=== PATIENT | male | born 1945 | race Caucasian/White ===

== ENCOUNTER 2016-04-19 09:49 | Emergency (ER) | payer MEDICARE, OTHER ==
--- NOTE | 2016-04-19 10:16 | EDM.PDOC ---
ED HPI GENERAL MEDICAL PROBLEM - General Chief Complaint: General Stated Complaint: HIGH BLOOD PRESSURE Time Seen by Provider: 04/19/16 10:00 Source of Information: Reports: Patient History Limitations: Reports: No limitations - History of Present Illness INITIAL COMMENTS - FREE TEXT/NARRATIVE: This 70 yo male patient reports to the ED due to high blood pressure. The patient reports that he has noticed his blood pressure increasing over the past week. The patient reports his blood pressure was 200/100 according to the blood pressure machine at the pharmacy. The patient has not been in to see his primary care provider for his elevated blood pressure. The patient has a history of an aortic valve replacement, but no history of hypertension. Onset: gradual Duration: Day(s):, Constant, Getting worse Location: Reports: other Quality: Reports: Other Severity: mild Improves with: Reports: None Worsens with: Reports: None Context: Reports: Other Associated Symptoms: Reports: other - Related Data Allergies Allergy/AdvReac Type Severity Reaction Status Date / Time No Known Allergies Allergy Verified 04/19/16 09:54 Home Meds: Home Meds Simvastatin [Simvastatin] 1 tab PO DAILY 02/24/16 [History] Warfarin Sodium [Jantoven] 1 - 2 tab PO ASDIRECTED 02/24/16 [History] Past Medical History HEENT History: Reports: Hard of hearing, Sinusitis Cardiovascular History: Reports: Afib, Arrhythmia, Bypass, Heart valve replacement, High cholesterol, PTCA, Other (see below) Other Cardiovascular History: aortic stenosis, aortic regurbitation, ischemic heart disease Respiratory History: Reports: None Gastrointestinal History: Reports: Chronic diarrhea Genitourinary History: Reports: None Musculoskeletal History: Reports: Back pain, chronic Neurological History: Reports: Migraines Psychiatric History: Reports: Panic attack Endocrine/Metabolic History: Reports: None Hematologic History: Reports: None Immunologic History: Reports: None Oncologic (Cancer) History: Reports: Other (see below) Other Oncologic History: skin Dermatologic History: Reports: None - Infectious Disease History Infectious Disease History: Reports: Chicken pox, Measles, Mumps - Past Surgical History Head Surgeries/Procedures: Reports: None HEENT Surgical History: Reports: None Cardiovascular Surgical History: Reports: Coronary artery bypass, Other (see below) Other Cardiovascular Surgeries/Procedures: angioplasty, aortic valve replacement GI Surgical History: Reports: Colonoscopy Musculoskeletal Surgical History: Reports: Other (see below) Other Musculoskeletal Surgeries/Procedures:: spinal fusion Social & Family History - Family History Family Medical History: Noncontributory - Tobacco Use Smoking Status *Q: Never Smoker - Caffeine Use Caffeine Use: Reports: None - Recreational Drug Use Recreational Drug Use: No ED ROS GENERAL - Review of Systems Review Of Systems: See Below Constitutional: Reports: no symptoms HEENT: Reports: No symptoms Respiratory: Reports: no symptoms Cardiovascular: Reports: No symptoms Endocrine: Reports: no symptoms GI/Abdominal: Reports: No symptoms : Reports: no symptoms Musculoskeletal: Reports: no symptoms Skin: Reports: no symptoms Neurological: Reports: no symptoms Psychiatric: Reports: No symptoms Hematologic/Lymphatic: Reports: no symptoms Immunologic: Reports: no symptoms ED EXAM, GENERAL - Physical Exam Exam: See Below Exam Limited By: No limitations General Appearance: alert, WD/WN, no apparent distress Eye Exam: bilateral eye: EOMI, normal inspection, PERRL Ears: normal external exam, normal canal, hearing grossly normal, normal TMs Nose: normal inspection, normal mucosa, no blood Throat/Mouth: Normal inspection, Normal lips, Normal teeth, Normal gums, Normal oropharynx, Normal voice, No airway compromise Head: atraumatic, normocephalic Neck: normal inspection, supple, non-tender, full range of motion Respiratory/Chest: no respiratory distress, lungs clear, normal breath sounds, no accessory muscle use, chest non-tender Cardiovascular: normal peripheral pulses, regular rate, rhythm, no edema, no gallop, no JVD, no murmur, no rub GI/Abdominal: normal bowel sounds, soft, non tender, no organomegaly, no distention, no abnormal bruit, no mass (Male) Exam: Deferred Rectal (Males) Exam: Deferred Back Exam: normal inspection, full range of motion, NT Extremities: normal inspection, normal range of motion, non-tender, normal capillary refill, no pedal edema Neurological: alert, oriented, CN II-XII intact, normal cognition, normal gait, normal reflexes, no motor/sensory deficits Psychiatric: normal affect, normal mood Skin Exam: Warm, Dry, Intact, Normal color, No rash Lymphatic: no adenopathy Course - Vital Signs Last Recorded V/S: Last Vital Signs Temp 36.8 C 04/19/16 09:56 Pulse 78 04/19/16 09:56 Resp 20 04/19/16 09:56 BP 173/100 H 04/19/16 09:56 Pulse Ox 100 04/19/16 09:56 - Orders/Labs/Meds Orders: Active Orders 24 hr Category Date Time Status EKG Documentation Completion [RC] URGENT Care 04/19/16 10:07 Ordered Labs: Laboratory Tests 04/19/16 04/19/16 04/19/16 Range/Units 10:20 10:20 10:20 WBC 6.7 (5.0-10.0) 10^3/uL RBC 4.49 L (4.6-6.2) 10^6/uL Hgb 14.8 (14.0-18.0) g/dL Hct 43.5 (40.0-54.0) % MCV 96.9 (80-100) fL MCH 33.0 (27.0-34.0) pg MCHC 34.0 (33.0-35.0) g/dL Plt Count 159 (150-450) 10^3/uL Neut % (Auto) 68.9 (42.2-75.2) % Lymph % (Auto) 22.1 (20.5-50.1) % [place] % (Auto) 7.0 (2-8) % Eos % (Auto) 1.6 (1.0-3.0) % Baso % (Auto) 0.4 (0.0-1.0) % PT 18.0 H (9.0-12.0) SEC INR 1.7 H (0.9-1.2) Sodium 139 (135-145) mmol/L Potassium 4.0 (3.6-5.0) mmol/L Chloride 104 (101-111) mmol/L Carbon Dioxide 28.0 (21.0-31.0) mmol/L Anion Gap 11.0 BUN 19 H (7-18) mg/dL Creatinine 0.6 (0.6-1.3) mg/dL Est Cr Clr Drug Dosing 105.58 mL/min Estimated GFR (MDRD) > 60 BUN/Creatinine Ratio 31.66 Glucose 101 (74-105) mg/dL Calcium 8.8 (8.4-10.2) mg/dl Total Bilirubin 0.6 (0.2-1.0) mg/dL AST 32 (10-42) IU/L ALT 28 (10-60) IU/L Alkaline Phosphatase 56 (42-121) IU/L Troponin I < 0.02 (0.00-0.02) ng/ml Total Protein 6.6 L (6.7-8.2) g/dl Albumin 3.9 (3.2-5.5) g/dl Globulin 2.7 Albumin/Globulin Ratio 1.44 Departure - Departure Time of Disposition: 11:03 Disposition: Home, Self-Care 01 Condition: fair Clinical Impression: Intermittent hypertension, Anxiety Forms: ED Department Discharge Care Plan Goals: The patient was advised of the examination, EKG and lab results during the visit. The patient was encouraged to continue to monitor his blood pressure. If the patient has any additional symptoms or concerns, the patient should follow- up with his primary care facility or return to the emergency department. - My Orders Last 24 Hours: My Active Orders 04/19/16 10:07 EKG Documentation Completion [RC] URGENT - Assessment/Plan Last 24 Hours: My Active Orders 04/19/16 10:07 EKG Documentation Completion [RC] URGENT
[2016-04-19 10:50] LABS: CHLORIDE,CL 104 mmol/L (101-111); SODIUM,NA 139 mmol/L (135-145)
[2016-04-19 11:05] VITALS: BP 149/76
--- NOTE | 2016-04-20 21:37 | EKG ---
04/19/2016 - SERGIO BHAT - TIME: 1010 hours. EKG shows normal sinus rhythm at 68 beats per minute. There are present PVCs. There is left anterior fascicular block. Probable left ventricular hypertrophy. [facility] /[id number]
== END 2016-04-19 11:16 | disposition home or self-care (01) ==
LOC: DL.ED 09:49
DX: I10 Essential (primary) hypertension (principal); F41.9 Anxiety disorder, unspecified; I48.91 Unspecified atrial fibrillation; I49.9 Cardiac arrhythmia, unspecified; E78.00 Pure hypercholesterolemia, unspecified; Z79.01 Long term (current) use of anticoagulants; Z95.1 Presence of aortocoronary bypass graft
CPT/HCPCS: 36415; 80053; 84484; 85025; 85610; 93005; 93010; 99282; 99283

== ENCOUNTER 2016-04-23 13:19 | Emergency (ER) | payer MEDICARE, OTHER ==
--- NOTE | 2016-04-23 13:33 | EDM.PDOC ---
ED HISTORY OF PRESENT ILLNESS - General Chief Complaint: Cardiovascular Problem Stated Complaint: [id number] HIGH BLOOD PRESSURE Time Seen by Provider: 04/23/16 13:32 Source of Information: Reports: Patient, Old records, RN, RN notes reviewed History Limitations: Reports: No limitations - History of Present Illness INITIAL COMMENTS - FREE TEXT/NARRATIVE: Presents to ER with complaint of high blood pressure. Patient states he was started on a new blood pressure med yesterday and today his BP was still 170/100 , so he doesn't think the new medicine is working. Denies chest pain, shortness of breath, palpitations, edema or cough. Admits to mild sinus congestion and sinus headache. Severity: moderate Quality: Reports: Same as previous episode Improves with: Reports: None Worsens with: Reports: None Associated Symptoms (General): Reports: no other symptoms - Related Data Allergies/ADRs: Allergies Allergy/AdvReac Type Severity Reaction Status Date / Time No Known Allergies Allergy Verified 04/19/16 09:54 Home Meds: Home Meds Simvastatin [Simvastatin] 1 tab PO DAILY 02/24/16 [History] Warfarin Sodium [Jantoven] 1 - 2 tab PO ASDIRECTED 02/24/16 [History] Hydrochlorothiazide 12.5 mg PO DAILY 04/23/16 [History] Past Medical History HEENT History: Reports: Hard of hearing, Sinusitis, Other (see below) (migraine) Cardiovascular History: Reports: Afib, Arrhythmia, Bypass, Heart valve replacement, High cholesterol, Hypertension, PTCA, Other (see below) (aortic stenosis) Other Cardiovascular History: aortic stenosis, aortic regurbitation, ischemic heart disease Respiratory History: Reports: None Gastrointestinal History: Reports: Chronic diarrhea, Hemorrhoids, Other (see below) (C-diff colitis.) Genitourinary History: Reports: None Musculoskeletal History: Reports: Back pain, chronic, Osteoarthritis Neurological History: Reports: Migraines Psychiatric History: Reports: Anxiety, Panic attack Endocrine/Metabolic History: Reports: None Hematologic History: Reports: None Immunologic History: Reports: None Oncologic (Cancer) History: Reports: Other (see below) Other Oncologic History: skin Dermatologic History: Reports: Other (see below) (skin cancer.) - Infectious Disease History Infectious Disease History: Reports: Chicken pox, Measles, Mumps - Past Surgical History Head Surgeries/Procedures: Reports: None HEENT Surgical History: Reports: None Cardiovascular Surgical History: Reports: Coronary artery bypass, Other (see below) (heart valve (porcine tissue valve)) Other Cardiovascular Surgeries/Procedures: angioplasty, aortic valve replacement GI Surgical History: Reports: Appendectomy, Colonoscopy Male Surgical History: Reports: Other (see below) (hemorrhoidectomy) Musculoskeletal Surgical History: Reports: Other (see below) (hand cyst/mass removal. Pablo surgery. Shoulder surgery.) Other Musculoskeletal Surgeries/Procedures:: spinal fusion Social & Family History - Family History Family Medical History: Noncontributory - Tobacco Use Smoking Status *Q: Never Smoker Second Hand Smoke Exposure: No - Caffeine Use Caffeine Use: Reports: None - Alcohol Use Days Per Week of Alcohol Use: 7 Number of Drinks Per Day: 1 Total Drinks Per Week: 7 - Recreational Drug Use Recreational Drug Use: No ED ROS GENERAL - Review of Systems Review Of Systems: ROS reveals no pertinent complaints other than HPI. ED EXAM, GENERAL - Physical Exam Exam: See Below Exam Limited By: No limitations General Appearance: alert, WD/WN, no apparent distress Head: atraumatic, normocephalic Neck: normal inspection, supple, non-tender, full range of motion Respiratory/Chest: no respiratory distress, lungs clear, normal breath sounds, no accessory muscle use, chest non-tender Cardiovascular: regular rate, rhythm (2/6 systolic ejectoin murmur.) GI/Abdominal: normal bowel sounds, soft, non tender, no organomegaly, no distention, no abnormal bruit, no mass Rectal (Males) Exam: Normal exam, Normal rectal tone, Prostate normal Back Exam: normal inspection, full range of motion, NT Extremities: normal inspection, normal range of motion, non-tender, normal capillary refill, no pedal edema Neurological: alert, oriented, CN II-XII intact, normal cognition, normal gait, normal reflexes, no motor/sensory deficits Psychiatric: anxious, other (depressed. Not suicidal. ) Skin Exam: Warm, Dry, Intact, Normal color, No rash Lymphatic: no adenopathy Course - Vital Signs Last Recorded V/S: Last Vital Signs Temp 36.6 C 04/23/16 13:37 Pulse 73 04/23/16 13:37 Resp 16 04/23/16 13:37 BP 172/91 H 04/23/16 13:37 Pulse Ox 96 04/23/16 13:37 Departure - Departure Time of Disposition: 13:54 Disposition: Home, Self-Care 01 Condition: good Clinical Impression: Essential hypertension Anxiety disorder Qualifiers: Anxiety disorder type: unspecified anxiety disorder Qualified Code(s): F41.9 - Anxiety disorder, unspecified Depression Qualifiers: Depression Type: unspecified Qualified Code(s): F32.9 - Major depressive disorder, single episode, unspecified Instructions: Hypertension, Panic Attacks, [id number] Forms: ED Department Discharge Additional Instructions: Klonopin 1mg. Continue current medications.
== END 2016-04-23 14:15 | disposition home or self-care (01) ==
LOC: DL.ED 13:19
CPT/HCPCS: 99282; 99283

== ENCOUNTER 2016-08-21 07:21 | Emergency (ER) | payer MEDICARE, OTHER ==
--- NOTE | 2016-08-21 07:39 | EDM.PDOC ---
ED HPI GENERAL MEDICAL PROBLEM - General Chief Complaint: Lower Extremity Injury/Pain Stated Complaint: LEG PAIN Time Seen by Provider: 08/21/16 07:37 Source of Information: Reports: Patient, Old Records, RN, RN Notes Reviewed History Limitations: Reports: No Limitations - History of Present Illness INITIAL COMMENTS - FREE TEXT/NARRATIVE: C/O Rt knee pain worsening over the past few weeks. About 3 weeks ago the knee became swollen and pt believes it had "water on it". He took some over the counter pain/arthritis medicines and it got better until a couple of days ago. Now it is not so much swollen, but is very painful to flex the knee. He has some relief with an ice pack to the posterior knee with the knee left in extension. Denies injury, redness, increased warmth, fever, chills, locking of the knee or giving way. Onset: Gradual Duration: Getting Worse Location: Reports: Lower Extremity, Right Quality: Reports: Ache Severity: Severe Associated Symptoms: Reports: No Other Symptoms Treatments [employer]: Reports: Acetaminophen, NSAIDS Right Knee Pain Score (Numeric/FACES): 8 - Related Data Allergies Allergy/AdvReac Type Severity Reaction Status Date / Time No Known Allergies Allergy Verified 04/19/16 09:54 Home Meds: Home Meds Warfarin Sodium [Jantoven] 1 tab PO ASDIRECTED 02/24/16 [History] Simvastatin [Zocor] 1 tab PO DAILY 08/21/16 [History] Warfarin Sodium [Jantoven] 1.25 mg PO ASDIRECTED 08/21/16 [History] Past Medical History HEENT History: Reports: Hard of Hearing, Sinusitis, Other (See Below) Cardiovascular History: Reports: Afib, Arrhythmia, Bypass, Heart Valve Replacement, High Cholesterol, Hypertension, PTCA, Other (See Below) Other Cardiovascular History: aortic stenosis, aortic regurbitation, ischemic heart disease Respiratory History: Reports: None Gastrointestinal History: Reports: Chronic Diarrhea, Hemorrhoids, Other (See Below) Genitourinary History: Reports: None Musculoskeletal History: Reports: Back Pain, Chronic, Osteoarthritis, Other ( See Below) (Lumbar DDD, lumbar radiculopathy to left leg) Neurological History: Reports: Migraines Psychiatric History: Reports: Anxiety, Panic Attack Endocrine/Metabolic History: Reports: None Hematologic History: Reports: None Immunologic History: Reports: None Oncologic (Cancer) History: Reports: Other (See Below) Other Oncologic History: skin Dermatologic History: Reports: Other (See Below) - Infectious Disease History Infectious Disease History: Reports: Chicken Pox, Measles, Mumps - Past Surgical History Cardiovascular Surgical History: Reports: Coronary Artery Bypass, Other (See Below) Male Surgical History: Reports: Other (See Below) Musculoskeletal Surgical History: Reports: Other (See Below) Social & Family History - Family History Family Medical History: Noncontributory - Tobacco Use Smoking Status *Q: Never Smoker Second Hand Smoke Exposure: No - Caffeine Use Caffeine Use: Reports: None - Alcohol Use Days Per Week of Alcohol Use: 7 Number of Drinks Per Day: 1 Total Drinks Per Week: 7 - Recreational Drug Use Recreational Drug Use: No - Living Situation & Occupation Occupation: Retired Review of Systems - Review of Systems Review Of Systems: ROS reveals no pertinent complaints other than HPI. ED EXAM, GENERAL - Physical Exam Exam: See Below Exam Limited By: No Limitations General Appearance: Alert, WD/WN, No Apparent Distress Head: Atraumatic, Normocephalic Neck: Normal Inspection Respiratory/Chest: No Respiratory Distress Cardiovascular: Normal Peripheral Pulses Back Exam: Normal Inspection, Full Range of Motion. No: CVA Tenderness (L), CVA Tenderness (R) Extremities: No Pedal Edema, Normal Capillary Refill, Limited Range of Motion ( pain with flexion of Rt knee, palpable arthritic crepitus with ROM of Rt knee ) . No: Joint Swelling, Brendan's Sign, Increased Warmth, Redness Neurological: Alert, Oriented, No Motor/Sensory Deficits Psychiatric: Anxious Skin Exam: Warm, Dry, Intact, Normal Color, No Rash Course - Vital Signs Last Recorded V/S: Last Vital Signs Temp 37.4 C 08/21/16 07:38 Pulse 68 08/21/16 07:38 Resp 20 08/21/16 07:38 BP 175/89 H 08/21/16 07:38 Pulse Ox 98 08/21/16 07:38 - Orders/Labs/Meds Orders: Active Orders 24 hr Category Date Time Status Immobilizer [RC] ASDIRECTED Care 08/21/16 08:22 Ordered Ketorolac [Toradol] Med 08/21/16 08:23 Once 30 mg IM ONETIME ONE - Radiology Interpretation Free Text/Narrative:: Xray Rt knee: no fractures, chronic arthritic changes, see Rad. report. Departure - Departure Time of Disposition: 08:29 Disposition: Home, Self-Care 01 Condition: Good Clinical Impression: Osteoarthritis of right knee Qualifiers: Osteoarthritis type: unspecified Qualified Code(s): M17.11 - Unilateral primary osteoarthritis, right knee Right knee pain Qualifiers: Chronicity: acute Qualified Code(s): M25.561 - Pain in right knee - Discharge Information Instructions: Knee Pain, [id number], Knee Immobilizer, [id number], Osteoarthritis Forms: ED Department Discharge Additional Instructions: Ice pack to right knee as needed for pain. Use immobilizer to right knee as needed. Rx: Guy 5mg/325mg *Do not drive or drink alcohol while under the influence of this medication. Follow up in clinic with your orthopedic surgeon at the first available appointment for recheck. - My Orders Last 24 Hours: My Active Orders 08/21/16 08:22 Immobilizer [RC] ASDIRECTED 08/21/16 08:23 Ketorolac [Toradol] 30 mg IM ONETIME ONE - Assessment/Plan Last 24 Hours: My Active Orders 08/21/16 08:22 Immobilizer [RC] ASDIRECTED 08/21/16 08:23 Ketorolac [Toradol] 30 mg IM ONETIME ONE
[2016-08-21 08:01] VITALS: BP 175/89
[2016-08-21] MEDS ORDERED: Ketorolac 30 MG/ML SDV IM ONE (08:23)
== END 2016-08-21 08:58 | disposition home or self-care (01) ==
LOC: DL.ED 07:21
DX: M17.11 Unilateral primary osteoarthritis, right knee (principal); G43.909 Migraine, unspecified, not intractable, without status migrainosus; F41.9 Anxiety disorder, unspecified; Z79.01 Long term (current) use of anticoagulants; Z79.899 Other long term (current) drug therapy; Z95.1 Presence of aortocoronary bypass graft
CPT/HCPCS: 73562; 96372; 99283; J1885

== ENCOUNTER 2016-11-07 16:56 | Emergency (ER) | payer MEDICARE, OTHER ==
[2016-11-07 17:14] VITALS: BP 177/82
--- NOTE | 2016-11-07 17:41 | EDM.PDOC ---
ED HPI GENERAL MEDICAL PROBLEM - General Chief Complaint: Chest Pain Stated Complaint: HEART ISSUES Time Seen by Provider: 11/07/16 17:33 Source of Information: Reports: Patient History Limitations: Reports: No Limitations - History of Present Illness INITIAL COMMENTS - FREE TEXT/NARRATIVE: 71 yo white male c/o not feeling well w/ head stuffiness and PMHx. irregular heart beat. Pt. denies any chest pain or SOB. Pt. also c/o fatigue because he does not sleep well due to worry( financial probs, his kennel, etc. Onset Date: 11/04/16 Onset Time: 12:00 Duration: Day(s): Location: Reports: Head, Generalized Severity: Moderate Improves with: Reports: None Worsens with: Reports: None Associated Symptoms: Reports: No Other Symptoms Treatments [facility]: Reports: EKG, IV/IO, Oxygen - Related Data Allergies Allergy/AdvReac Type Severity Reaction Status Date / Time No Known Allergies Allergy Verified 04/19/16 09:54 Home Meds: Home Meds Warfarin Sodium [Jantoven] 1 tab PO ASDIRECTED 02/24/16 [History] Simvastatin [Zocor] 1 tab PO DAILY 08/21/16 [History] Warfarin Sodium [Jantoven] 1.25 mg PO ASDIRECTED 08/21/16 [History] Past Medical History HEENT History: Reports: Hard of Hearing, Sinusitis, Other (See Below) Cardiovascular History: Reports: Afib, Arrhythmia, Bypass, Heart Valve Replacement, High Cholesterol, Hypertension, PTCA, Other (See Below) Other Cardiovascular History: aortic stenosis, aortic regurbitation, ischemic heart disease Respiratory History: Reports: None Gastrointestinal History: Reports: Chronic Diarrhea, Hemorrhoids, Other (See Below) Genitourinary History: Reports: None Musculoskeletal History: Reports: Back Pain, Chronic, Osteoarthritis, Other ( See Below) (Lumbar DDD, lumbar radiculopathy to left leg) Neurological History: Reports: Migraines Psychiatric History: Reports: Anxiety, Panic Attack Endocrine/Metabolic History: Reports: None Hematologic History: Reports: None Immunologic History: Reports: None Oncologic (Cancer) History: Reports: Other (See Below) Other Oncologic History: skin Dermatologic History: Reports: Other (See Below) - Infectious Disease History Infectious Disease History: Reports: Chicken Pox, Measles, Mumps - Past Surgical History Cardiovascular Surgical History: Reports: Coronary Artery Bypass, Other (See Below) Male Surgical History: Reports: Other (See Below) Musculoskeletal Surgical History: Reports: Other (See Below) Social & Family History - Family History Family Medical History: Noncontributory - Tobacco Use Smoking Status *Q: Never Smoker Second Hand Smoke Exposure: No - Caffeine Use Caffeine Use: Reports: Soda - Alcohol Use Days Per Week of Alcohol Use: 7 Number of Drinks Per Day: 1 Total Drinks Per Week: 7 - Recreational Drug Use Recreational Drug Use: No - Living Situation & Occupation Occupation: Retired ED ROS GENERAL - Review of Systems Review Of Systems: See Below Constitutional: Reports: Malaise HEENT: Reports: Sinus Problem Respiratory: Reports: No Symptoms Cardiovascular: Reports: No Symptoms Endocrine: Reports: No Symptoms GI/Abdominal: Reports: No Symptoms : Reports: No Symptoms Musculoskeletal: Reports: No Symptoms Skin: Reports: No Symptoms Neurological: Reports: No Symptoms Psychiatric: Reports: No Symptoms Hematologic/Lymphatic: Reports: No Symptoms Immunologic: Reports: No Symptoms ED EXAM, GENERAL - Physical Exam Exam: See Below Exam Limited By: No Limitations General Appearance: Alert, WD/WN, No Apparent Distress, Other (poor hygiene) Eye Exam: Bilateral Eye: EOMI, PERRL Ears: Normal External Exam Ear Exam: Bilateral Ear: Other (bilat cerumen) Nose: Normal Inspection Throat/Mouth: Normal Inspection, Normal Oropharynx Head: Atraumatic, Normocephalic Neck: Normal Inspection, Supple Respiratory/Chest: No Respiratory Distress, Lungs Clear Cardiovascular: Normal Peripheral Pulses, Regular Rate, Rhythm Peripheral Pulses: 2+: Femoral (L), Femoral (R) GI/Abdominal: Normal Bowel Sounds, Soft, Non-Tender Back Exam: Normal Inspection Extremities: Normal Inspection, Normal Range of Motion, Non-Tender Neurological: Alert, Oriented, CN II-XII Intact Psychiatric: Normal Affect Skin Exam: Warm, Dry, Intact, Normal Color, No Rash Lymphatic: No Adenopathy Course - Vital Signs Last Recorded V/S: Last Vital Signs Temp 36.2 C 11/07/16 17:00 Pulse 84 11/07/16 17:00 Resp 16 11/07/16 17:00 BP 177/82 H 11/07/16 17:00 Pulse Ox 100 11/07/16 17:00 - Orders/Labs/Meds Orders: Active Orders 24 hr Category Date Time Status EKG 12 Lead [EKG Documentation Completion] [RC] STAT Care 11/07/16 17:18 Active Sodium Chloride 0.9% [Normal Saline] 250 ml Med 11/07/16 17:45 Active IV ASDIRECTED Medication Orders Sodium Chloride (Normal Saline) 250 mls @ 50 mls/hr IV ASDIRECTED GIGI Labs: Laboratory Tests 11/07/16 11/07/16 11/07/16 Range/Units 17:08 17:08 17:08 WBC 7.3 (5.0-10.0) 10^3/uL RBC 4.63 (4.6-6.2) 10^6/uL Hgb 14.9 (14.0-18.0) g/dL Hct 43.8 (40.0-54.0) % MCV 94.6 (80-100) fL MCH 32.2 (27.0-34.0) pg MCHC 34.0 (33.0-35.0) g/dL Plt Count 229 (150-450) 10^3/uL Neut % (Auto) 75.0 (42.2-75.2) % Lymph % (Auto) 15.4 L (20.5-50.1) % [place] % (Auto) 8.3 H (2-8) % Eos % (Auto) 0.7 L (1.0-3.0) % Baso % (Auto) 0.6 (0.0-1.0) % PT 15.1 H (9.0-12.0) SEC INR 1.5 H (0.9-1.2) APTT 25.3 (22.0-34.0) SEC Sodium 138 (135-145) mmol/L Potassium 3.7 (3.6-5.0) mmol/L Chloride 101 (101-111) mmol/L Carbon Dioxide 25.0 (21.0-31.0) mmol/L Anion Gap 15.7 BUN 12 (7-18) mg/dL Creatinine 0.6 (0.6-1.3) mg/dL Est Cr Clr Drug Dosing TNP Estimated GFR (MDRD) > 60 BUN/Creatinine Ratio 20.00 Glucose 104 (74-105) mg/dL Calcium 9.2 (8.4-10.2) mg/dl Total Bilirubin 0.7 (0.2-1.0) mg/dL AST 29 (10-42) IU/L ALT 25 (10-60) IU/L Alkaline Phosphatase 51 (42-121) IU/L Troponin I < 0.02 (0.00-0.02) ng/ml Total Protein 7.0 (6.7-8.2) g/dl Albumin 4.0 (3.2-5.5) g/dl Globulin 3.0 Albumin/Globulin Ratio 1.33 Meds: Medications Generic Name Dose Route Start Last Admin Trade Name Jessica PRN Reason Stop Dose Admin Sodium Chloride 250 mls @ 50 mls/hr 11/07/16 17:45 Normal Saline IV ASDIRECTED GIGI Departure - Departure Time of Disposition: 18:40 Disposition: Home, Self-Care 01 Condition: Good Clinical Impression: URI (upper respiratory infection) Qualifiers: URI type: unspecified viral URI Qualified Code(s): J06.9 - Acute upper respiratory infection, unspecified; B97.89 - Other viral agents as the cause of diseases classified elsewhere Insomnia Qualifiers: Insomnia type: primary Qualified Code(s): F51.01 - Primary insomnia Forms: ED Department Discharge Additional Instructions: Increase intake of Fluids ( Water / Juice) For Sleep try otc (MELATONIN) Improve diet by increasing fresh fruits and vegetables F/U w/ PCP - My Orders Last 24 Hours: My Active Orders 11/07/16 17:18 EKG 12 Lead [EKG Documentation Completion] [RC] STAT 11/07/16 17:45 Sodium Chloride 0.9% [Normal Saline] 250 ml IV ASDIRECTED - Assessment/Plan Last 24 Hours: My Active Orders 11/07/16 17:18 EKG 12 Lead [EKG Documentation Completion] [RC] STAT 11/07/16 17:45 Sodium Chloride 0.9% [Normal Saline] 250 ml IV ASDIRECTED
[2016-11-07] MEDS ORDERED: Sodium Chloride 0.9% 250 ML IV SCH (17:45)
[2016-11-07 17:53] LABS: CHLORIDE,CL 101 mmol/L (101-111); SODIUM,NA 138 mmol/L (135-145)
--- NOTE | 2016-11-09 16:33 | EKG ---
11/07/2016 - SERGIO BHAT I reviewed the EKG and agree with the machine's reading. [facility] /[id number]
== END 2016-11-07 18:58 | disposition home or self-care (01) ==
LOC: DL.ED 16:56
DX: J06.9 Acute upper respiratory infection, unspecified (principal); F51.01 Primary insomnia; I10 Essential (primary) hypertension; I48.91 Unspecified atrial fibrillation; E78.00 Pure hypercholesterolemia, unspecified; M19.90 Unspecified osteoarthritis, unspecified site; F41.0 Panic disorder [episodic paroxysmal anxiety]; Z85.828 Personal history of other malignant neoplasm of skin; Z95.1 Presence of aortocoronary bypass graft; Z95.2 Presence of prosthetic heart valve; Z79.01 Long term (current) use of anticoagulants; Z79.899 Other long term (current) drug therapy
CPT/HCPCS: 36415; 71010; 80053; 84484; 85025; 85610; 85730; 93005; 93010; 99283; 99284

== ENCOUNTER 2019-02-26 13:18 | Emergency (ER) | payer MEDICARE, OTHER ==
[2019-02-26 13:36] VITALS: BP 137/77; PULSE 93
[2019-02-26 13:54] LABS: ANION GAP 13.7; CHLORIDE,CL 100 mmol/L (101-111); SODIUM,NA 135 mmol/L (135-145)
--- NOTE | 2019-02-26 14:55 | EDM.PDOC ---
ED HPI GENERAL MEDICAL PROBLEM - General Chief Complaint: Chest Pain Stated Complaint: HIGH BLOOD PRESSURE/ARRHYTHMIA Time Seen by Provider: 02/26/19 13:55 Source of Information: Reports: Patient, RN, RN Notes Reviewed History Limitations: Reports: No Limitations - History of Present Illness INITIAL COMMENTS - FREE TEXT/NARRATIVE: Patient presents to ED with palpitations and hypertension. Patient took a Viagra last night. His symptoms have subsided. Blood pressure is 190s/116 at some point. Denies risk of self harm just a lot of :emotional stuff going on". He admits to anxiety. No pain or shortness of breath. Onset Date: 02/25/19 Severity: Mild Improves with: Reports: None Worsens with: Reports: None Associated Symptoms: Reports: No Other Symptoms - Related Data Allergies Allergy/AdvReac Type Severity Reaction Status Date / Time sertraline [From Zoloft] Allergy Depression Verified 09/13/18 12:56 Home Meds: Home Meds Lisinopril 10 mg PO DAILY 09/13/18 [History] atorvaSTATin [Lipitor] 40 mg PO BEDTIME 09/13/18 [History] Past Medical History HEENT History: Reports: Hard of Hearing, Sinusitis, Other (See Below) Cardiovascular History: Reports: Afib, Arrhythmia, Bypass, Heart Valve Replacement, High Cholesterol, Hypertension, PTCA, Other (See Below) Other Cardiovascular History: aortic stenosis, aortic regurbitation, ischemic heart disease Respiratory History: Reports: None Gastrointestinal History: Reports: Chronic Diarrhea, Hemorrhoids, Other (See Below) Genitourinary History: Reports: None Musculoskeletal History: Reports: Back Pain, Chronic, Osteoarthritis, Other ( See Below) Other Musculoskeletal History: LKR Neurological History: Reports: Migraines Other Neuro History: Pt had a fall last April that lead to Brain Surgery Psychiatric History: Reports: Anxiety, Panic Attack Endocrine/Metabolic History: Reports: None Hematologic History: Reports: None, Bleeding Disorder, Other (See Below) Other Hematologic History: Factor 7 bleeding disorder. Immunologic History: Reports: None Oncologic (Cancer) History: Reports: None, Other (See Below) Other Oncologic History: skin Dermatologic History: Reports: None, Other (See Below) Other Dermatologic History: skin cancer right side of nose - Infectious Disease History Infectious Disease History: Reports: Chicken Pox, Measles, Mumps - Past Surgical History Head Surgeries/Procedures: Reports: None Cardiovascular Surgical History: Reports: Coronary Artery Bypass, Other (See Below) Male Surgical History: Reports: Other (See Below) Musculoskeletal Surgical History: Reports: Other (See Below) Social & Family History - Family History Family Medical History: Noncontributory - Tobacco Use Smoking Status *Q: Never Smoker Second Hand Smoke Exposure: No - Caffeine Use Caffeine Use: Reports: Soda - Alcohol Use Days Per Week of Alcohol Use: 7 Number of Drinks Per Day: 2 Total Drinks Per Week: 14 - Recreational Drug Use Recreational Drug Use: No - Living Situation & Occupation Occupation: Retired ED ROS GENERAL - Review of Systems Review Of Systems: Comprehensive ROS is negative, except as noted in HPI. ED EXAM, GENERAL - Physical Exam Exam: See Below Exam Limited By: No Limitations General Appearance: Anxious, Other (clean) Eye Exam: Bilateral Eye: EOMI, Normal Inspection, PERRL Ears: Normal External Exam, Normal Canal, Hearing Grossly Normal, Normal TMs Nose: Normal Inspection, Normal Mucosa, No Blood Throat/Mouth: Normal Inspection, Normal Lips, Normal Teeth, Normal Gums, Normal Oropharynx, Normal Voice, No Airway Compromise Head: Atraumatic, Normocephalic Neck: Normal Inspection, Supple, Non-Tender, Full Range of Motion Respiratory/Chest: No Respiratory Distress, Lungs Clear, Normal Breath Sounds, No Accessory Muscle Use, Chest Non-Tender Cardiovascular: Regular Rate, Rhythm (without ectopy) GI/Abdominal: Normal Bowel Sounds, Soft, Non-Tender, No Organomegaly, No Distention, No Abnormal Bruit, No Mass (Male) Exam: Deferred Rectal (Males) Exam: Deferred Back Exam: Normal Inspection, Full Range of Motion, NT Extremities: Normal Inspection, Normal Range of Motion, Non-Tender, Normal Capillary Refill, No Pedal Edema Neurological: No Motor/Sensory Deficits Psychiatric: Normal Affect, Normal Mood Course - Vital Signs Last Recorded V/S: Last Vital Signs Temp 98 F 02/26/19 13:29 Pulse 93 02/26/19 13:29 Resp 18 02/26/19 13:29 BP 137/77 02/26/19 13:29 Pulse Ox 96 02/26/19 13:29 - Orders/Labs/Meds Orders: Active Orders 24 hr Category Date Time Status EKG Documentation Completion [RC] ROUTINE Care 02/26/19 13:32 Active Labs: Laboratory Tests 02/26/19 02/26/19 Range/Units 13:25 13:25 WBC 11.8 H (5.0-10.0) 10^3/uL RBC 4.51 L (4.6-6.2) 10^6/uL Hgb 14.6 D (14.0-18.0) g/dL Hct 42.3 (40.0-54.0) % MCV 93.8 D (80-100) fL MCH 32.4 (27.0-34.0) pg MCHC 34.5 (33.0-35.0) g/dL Plt Count 271 D (150-450) 10^3/uL Sodium 135 (135-145) mmol/L Potassium 3.7 (3.6-5.0) mmol/L Chloride 100 L (101-111) mmol/L Carbon Dioxide 25.0 (21.0-31.0) mmol/L Anion Gap 13.7 BUN 16 (7-18) mg/dL Creatinine 0.8 (0.6-1.3) mg/dL Est Cr Clr Drug Dosing 75.74 mL/min Estimated GFR (MDRD) > 60 BUN/Creatinine Ratio 20.00 Glucose 130 H (74-105) mg/dL Calcium 9.5 (8.4-10.2) mg/dl Total Bilirubin 0.8 (0.2-1.0) mg/dL AST 28 (10-42) IU/L ALT 21 (10-60) IU/L Alkaline Phosphatase 52 (42-121) IU/L Troponin I < 0.02 (0.00-0.02) ng/ml Total Protein 7.6 (6.7-8.2) g/dl Albumin 4.1 (3.2-5.5) g/dl Globulin 3.5 Albumin/Globulin Ratio 1.17 Departure - Departure Time of Disposition: 14:43 Disposition: Home, Self-Care 01 Condition: Good Clinical Impression: Anxiety Instructions: Hypertension, [id number] Forms: ED Department Discharge Additional Instructions: rest today fluids follow up with mental health counselor this week urgent follow up, short of breath with chest pain, sweating Home medications as prescribed Sepsis Event Note - Evaluation Sepsis Screening Result: No Definite Risk - Focused Exam Vital Signs: Vital Signs Temp Pulse Resp BP Pulse Ox 02/26/19 13:29 98 F 93 18 137/77 96 02/26/19 13:28 98.1 F 76 19 144/82 H 99 Date Exam was Performed: 02/26/19 Time Exam was Performed: 16:18 - My Orders Last 24 Hours: My Active Orders 02/26/19 13:32 EKG Documentation Completion [RC] ROUTINE - Assessment/Plan Last 24 Hours: My Active Orders 02/26/19 13:32 EKG Documentation Completion [RC] ROUTINE
--- NOTE | 2019-02-26 15:00 | CR ---
EXAMINATION: Chest 1V Frontal SEX: Male AGE: 73 years CLINICAL HISTORY: 73-year-old male complaining of CHEST PAIN. INTERPRETATION: External ekg monitor tech leads. Sternotomy wires. 1. Mild ectasia dorsal aorta and asymmetric prominence brachiocephalic artery and/or superior vena cava on the right unchanged since 13 September 2018. 2. Normal cardiac silhouette without new signs of pulmonary vascular congestion, cephalization, alveolar edema or dependent pleural effusion. 3. No new lung mass, hilar lymphadenopathy or focal lobar pneumonia. 4. No pneumothorax or pneumomediastinum. CONCLUSION: Evidence previous surgery. No acute cardiopulmonary abnormality
== END 2019-02-26 15:11 | disposition home or self-care (01) ==
LOC: DL.ED 13:18
DX: F41.9 Anxiety disorder, unspecified (principal); E78.00 Pure hypercholesterolemia, unspecified; I10 Essential (primary) hypertension; Z88.8 Allergy status to other drugs, medicaments and biological substances; Z79.899 Other long term (current) drug therapy
CPT/HCPCS: 36415; 71045; 80053; 84484; 85027; 93005; 99283; 99285-25

== ENCOUNTER 2019-04-11 14:38 | Emergency (ER) | payer MEDICARE, OTHER ==
[2019-04-11 14:59] VITALS: BP 155/75; PULSE 81
--- NOTE | 2019-04-11 15:29 | EDM.PDOC ---
<Oscar Bush - Last Filed: 04/11/19 15:32> ED HPI GENERAL MEDICAL PROBLEM - General Chief Complaint: Chest Pain Stated Complaint: UNKNOWN Time Seen by Provider: 04/11/19 15:23 Source of Information: Reports: Patient, RN, RN Notes Reviewed History Limitations: Reports: No Limitations - History of Present Illness INITIAL COMMENTS - FREE TEXT/NARRATIVE: Patient presents to ER via ambulance for chest pain while driving car and had sharp pain to the right chest and stated felt like someone was poking under the right jaw, states this is the 3rd time in last 2 weeks but this time it lasted longer than the previous episodes and got worried about it. He was at ENT yesterday who thought he might had GERD and they looked at his esophagus and is scheduled to go back for a swallow study. His blood pressure was elevated when they first intercepted him at that rest area, last B/P from ambulance was 171/85 , patient was given 4 baby aspirin by ambulance, states the pain went away about 5 minutes after ambulance picked up patient. He is resting comfortably in the ER and is not having any chest pain currently. Patient denies N/V, headache , dizziness or SOB. Patient added that he has had mild hematuria and is scheduled to meet with a Urologist but not sure on the date. Onset: Today Duration: Resolved Prior to Arrival Location: Reports: Neck, Chest Quality: Reports: Ache, Pressure Severity: Mild Improves with: Reports: None Worsens with: Reports: None Associated Symptoms: Reports: Chest Pain (right sided chest pain radiating to right jaw), Cough. Denies: cough w sputum, Diaphoresis, Fever/Chills, Headaches , Loss of Appetite, Nausea/Vomiting, Shortness of Breath, Syncope, Weakness - Related Data Allergies Allergy/AdvReac Type Severity Reaction Status Date / Time sertraline [From Zoloft] Allergy Depression Verified 04/11/19 14:59 Home Meds: Home Meds Lisinopril 10 mg PO DAILY 09/13/18 [History] atorvaSTATin [Lipitor] 40 mg PO BEDTIME 09/13/18 [History] Past Medical History HEENT History: Reports: Hard of Hearing, Sinusitis, Other (See Below) Cardiovascular History: Reports: Afib, Arrhythmia, Bypass, Heart Valve Replacement, High Cholesterol, Hypertension, PTCA, Other (See Below) Other Cardiovascular History: aortic stenosis, aortic regurbitation, ischemic heart disease Respiratory History: Reports: None Gastrointestinal History: Reports: Chronic Diarrhea, Hemorrhoids, Other (See Below) Genitourinary History: Reports: None Musculoskeletal History: Reports: Back Pain, Chronic, Osteoarthritis, Other ( See Below) Other Musculoskeletal History: LKR Neurological History: Reports: Migraines Other Neuro History: Pt had a fall last April that lead to Brain Surgery Nov. 20 Psychiatric History: Reports: Anxiety, Depression, Panic Attack Endocrine/Metabolic History: Reports: None Hematologic History: Reports: None, Bleeding Disorder, Other (See Below) Other Hematologic History: Factor 7 bleeding disorder. Immunologic History: Reports: None Oncologic (Cancer) History: Reports: None, Other (See Below) Other Oncologic History: skin Dermatologic History: Reports: None, Other (See Below) Other Dermatologic History: skin cancer right side of nose - Infectious Disease History Infectious Disease History: Reports: Chicken Pox, Measles, Mumps - Past Surgical History Head Surgeries/Procedures: Reports: None Cardiovascular Surgical History: Reports: Coronary Artery Bypass, Other (See Below) Male Surgical History: Reports: Other (See Below) Musculoskeletal Surgical History: Reports: Other (See Below) Social & Family History - Family History Family Medical History: Noncontributory - Tobacco Use Smoking Status *Q: Never Smoker Second Hand Smoke Exposure: No - Caffeine Use Caffeine Use: Reports: None - Recreational Drug Use Recreational Drug Use: No - Living Situation & Occupation Occupation: Retired ED ROS GENERAL - Review of Systems Review Of Systems: Comprehensive ROS is negative, except as noted in HPI. ED EXAM, GENERAL - Physical Exam Exam: See Below Exam Limited By: No Limitations General Appearance: Alert, WD/WN, No Apparent Distress Eye Exam: Bilateral Eye: EOMI, Normal Inspection, PERRL Ears: Normal External Exam, Normal Canal, Hearing Grossly Normal, Normal TMs Ear Exam: Bilateral Ear: Auricle Normal, Canal Normal, TM normal Nose: Normal Inspection, Normal Mucosa, No Blood Throat/Mouth: Normal Inspection, Normal Lips, Normal Teeth, Normal Gums, Normal Oropharynx, Normal Voice, No Airway Compromise Head: Atraumatic, Normocephalic Neck: Normal Inspection, Supple, Non-Tender, Full Range of Motion. No: Carotid Bruit Respiratory/Chest: No Respiratory Distress, Lungs Clear, Normal Breath Sounds, No Accessory Muscle Use, Chest Non-Tender Cardiovascular: Normal Peripheral Pulses, Regular Rate, Rhythm, No Edema, No Gallop, No JVD, No Murmur, No Rub Peripheral Pulses: 2+: Carotid (L), Carotid (R) GI/Abdominal: Normal Bowel Sounds, Soft, Non-Tender, No Organomegaly, No Distention, No Abnormal Bruit, No Mass Extremities: Normal Inspection, Normal Range of Motion, Non-Tender, Normal Capillary Refill, No Pedal Edema Neurological: Alert, Oriented, CN II-XII Intact, Normal Cognition, Normal Gait, Normal Reflexes, No Motor/Sensory Deficits Course - Vital Signs Last Recorded V/S: Last Vital Signs Temp 99.1 F 04/11/19 14:48 Pulse 81 04/11/19 14:48 Resp 16 04/11/19 14:48 BP 155/75 H 04/11/19 14:48 Pulse Ox 97 04/11/19 14:48 - Orders/Labs/Meds Orders: Active Orders 24 hr Category Date Time Status EKG 12 Lead [EKG Documentation Completion] [RC] STAT Care 04/11/19 14:46 Active Labs: Laboratory Tests 04/11/19 04/11/19 04/11/19 Range/Units 14:45 15:05 15:05 WBC 5.6 (5.0-10.0) 10^3/uL RBC 4.15 L (4.6-6.2) 10^6/uL Hgb 13.6 L (14.0-18.0) g/dL Hct 38.5 L (40.0-54.0) % MCV 92.8 (80-100) fL MCH 32.8 (27.0-34.0) pg MCHC 35.3 H (33.0-35.0) g/dL Plt Count 173 D (150-450) 10^3/uL Neut % (Auto) 70.6 (42.2-75.2) % Lymph % (Auto) 19.5 L (20.5-50.1) % [place] % (Auto) 7.4 (2-8) % Eos % (Auto) 2.0 (1.0-3.0) % Baso % (Auto) 0.5 (0.0-1.0) % Sodium 136 (135-145) mmol/L Potassium 3.4 L (3.6-5.0) mmol/L Chloride 105 (101-111) mmol/L Carbon Dioxide 24.0 (21.0-31.0) mmol/L Anion Gap 10.4 BUN 20 H (7-18) mg/dL Creatinine 0.6 (0.6-1.3) mg/dL Est Cr Clr Drug Dosing 100.99 mL/min Estimated GFR (MDRD) > 60 BUN/Creatinine Ratio 33.33 Glucose 114 H (74-105) mg/dL Lactic Acid (0.5-2.0) mmol/L Calcium 8.7 (8.4-10.2) mg/dl Total Bilirubin 0.7 (0.2-1.0) mg/dL AST 23 (10-42) IU/L ALT 18 (10-60) IU/L Alkaline Phosphatase 43 (42-121) IU/L Troponin I < 0.02 (0.00-0.02) ng/ml Total Protein 6.4 L (6.7-8.2) g/dl Albumin 3.8 (3.2-5.5) g/dl Globulin 2.6 Albumin/Globulin Ratio 1.46 Amylase 46 (28-100) U/L Lipase 28 (22-51) U/L Urine Color Yellow (YELLOW) Urine Appearance Clear (CLEAR) Urine pH 5.0 (5.0-9.0) Ur Specific [place] >= 1.030 (1.005-1.030) Urine Protein Negative (NEGATIVE) Urine Glucose (UA) Negative (NEGATIVE) Urine Ketones Negative (NEGATIVE) Urine Occult Blood Trace-lysed H (NEGATIVE) Urine Nitrite Negative (NEGATIVE) Urine Bilirubin Negative (NEGATIVE) Urine Urobilinogen 0.2 (0.2-1.0) mg/dL Ur Leukocyte Esterase Negative (NEGATIVE) Urine RBC 0-5 /HPF Urine WBC Not seen (0-5/HPF) /HPF Ur Epithelial Cells Rare (NOT SEEN) /HPF Urine Bacteria Rare (0-FEW/HPF) /HPF 04/11/19 04/11/19 Range/Units 15:05 19:00 WBC (5.0-10.0) 10^3/uL RBC (4.6-6.2) 10^6/uL Hgb (14.0-18.0) g/dL Hct (40.0-54.0) % MCV (80-100) fL MCH (27.0-34.0) pg MCHC (33.0-35.0) g/dL Plt Count (150-450) 10^3/uL Neut % (Auto) (42.2-75.2) % Lymph % (Auto) (20.5-50.1) % [place] % (Auto) (2-8) % Eos % (Auto) (1.0-3.0) % Baso % (Auto) (0.0-1.0) % Sodium (135-145) mmol/L Potassium (3.6-5.0) mmol/L Chloride (101-111) mmol/L Carbon Dioxide (21.0-31.0) mmol/L Anion Gap BUN (7-18) mg/dL Creatinine (0.6-1.3) mg/dL Est Cr Clr Drug Dosing mL/min Estimated GFR (MDRD) BUN/Creatinine Ratio Glucose (74-105) mg/dL Lactic Acid 1.2 (0.5-2.0) mmol/L Calcium (8.4-10.2) mg/dl Total Bilirubin (0.2-1.0) mg/dL AST (10-42) IU/L ALT (10-60) IU/L Alkaline Phosphatase (42-121) IU/L Troponin I 0.02 (0.00-0.02) ng/ml Total Protein (6.7-8.2) g/dl Albumin (3.2-5.5) g/dl Globulin Albumin/Globulin Ratio Amylase (28-100) U/L Lipase (22-51) U/L Urine Color (YELLOW) Urine Appearance (CLEAR) Urine pH (5.0-9.0) Ur Specific [place] (1.005-1.030) Urine Protein (NEGATIVE) Urine Glucose (UA) (NEGATIVE) Urine Ketones (NEGATIVE) Urine Occult Blood (NEGATIVE) Urine Nitrite (NEGATIVE) Urine Bilirubin (NEGATIVE) Urine Urobilinogen (0.2-1.0) mg/dL Ur Leukocyte Esterase (NEGATIVE) Urine RBC /HPF Urine WBC (0-5/HPF) /HPF Ur Epithelial Cells (NOT SEEN) /HPF Urine Bacteria (0-FEW/HPF) /HPF Departure - Departure Disposition: Home, Self-Care 01 Clinical Impression: Atypical chest pain Forms: ED Department Discharge Additional Instructions: Clinic follow up light bland diet avoid caffeine and spicy foods home medications as directed by primary care urgent follow up if recurrent chest pain Sepsis Event Note - Evaluation Sepsis Screening Result: No Definite Risk - Focused Exam Vital Signs: Vital Signs Temp Pulse Resp BP Pulse Ox 04/11/19 14:48 99.1 F 81 16 155/75 H 97 Date Exam was Performed: 04/11/19 Time Exam was Performed: 15:32 <Essie Shirley - Last Filed: 04/11/19 21:56> Departure - Departure Time of Disposition: 21:54 Condition: Good Sepsis Event Note - Focused Exam Date Exam was Performed: 04/11/19 Time Exam was Performed: 21:54
[2019-04-11 15:37] LABS: ANION GAP 10.4; CHLORIDE,CL 105 mmol/L (101-111); SODIUM,NA 136 mmol/L (135-145)
--- NOTE | 2019-04-11 15:42 | CR ---
EXAMINATION: Chest 2V SEX: Male AGE: 73 years CLINICAL HISTORY: 73-year-old male emergency department complaining of chest pain. Comparison exam 26 February 2019. INTERPRETATION: 1. Sternotomy wires and external monitoring tech leads. Cardiac valve prosthesis. 2. Chronic hypertrophic spondylosis mid dorsal spine. 3. No pulmonary vascular congestion, cephalization of vascular flow, alveolar edema or dependent pleural effusion. 4. No new lung mass, hilar lymphadenopathy or focal lobar pneumonia. 5. No pneumothorax or pneumomediastinum. 6. No atelectasis/collapse. CONCLUSION: No acute new cardiopulmonary abnormality since previous chest radiograph 26 February 2019.
[2019-04-11] MEDS ORDERED: Ondansetron 4 MG Tab.DIS ONE (22:03)
== END 2019-04-11 22:00 | disposition home or self-care (01) ==
LOC: DL.ED 14:38
DX: R07.89 Other chest pain (principal); I48.91 Unspecified atrial fibrillation; E78.00 Pure hypercholesterolemia, unspecified; I10 Essential (primary) hypertension; Z88.8 Allergy status to other drugs, medicaments and biological substances
CPT/HCPCS: 36415; 71046; 80053; 81001; 82150; 83605; 83690; 84484; 85025; 93005; 99285-25

== ENCOUNTER 2019-04-19 14:48 | Emergency (ER) | payer MEDICARE, OTHER ==
[2019-04-19] MEDS ORDERED: LORazepam 0.5 MG Tab PO ONE (15:26)
[2019-04-19 15:34] LABS: ANION GAP 13.4; CHLORIDE,CL 104 mmol/L (101-111); SODIUM,NA 137 mmol/L (135-145)
--- NOTE | 2019-04-19 15:35 | EDM.PDOC ---
ED HPI GENERAL MEDICAL PROBLEM - General Chief Complaint: Chest Pain Stated Complaint: RIGHT SHOULDER BLADE PAIN Time Seen by Provider: 04/19/19 15:20 Source of Information: Reports: Patient History Limitations: Reports: No Limitations - History of Present Illness INITIAL COMMENTS - FREE TEXT/NARRATIVE: This 73 yo male reports to the ED with right posterior scapula pain. The patient reports he was driving during the onset of his pain. The patient reports his pain was between his right scapula and his spine. The patient was seen in the ED 1 week ago with similar pain, but that time his pain radiated up to the right side of his neck. The patient reports he did go to [facility] to see cardiology, had a stress test and was advised that everything was fine. Th patient reports he does have a history of anxiety. Onset: Sudden Duration: Constant Location: Reports: Back (right scapula) Quality: Reports: Ache, Sharp, Stabbing Severity: Severe Improves with: Reports: None Worsens with: Reports: None Context: Reports: Other Associated Symptoms: Reports: No Other Symptoms - Related Data Allergies Allergy/AdvReac Type Severity Reaction Status Date / Time sertraline [From Zoloft] Allergy Depression Verified 04/11/19 14:59 Home Meds: Home Meds Lisinopril 10 mg PO DAILY 09/13/18 [History] atorvaSTATin [Lipitor] 40 mg PO BEDTIME 09/13/18 [History] Lisinopril [Zestril] 20 mg PO ACBREAKFAST 04/19/19 [History] hydrOXYzine pamoate [Hydroxyzine Pamoate] 25 mg PO Q4HR PRN 04/19/19 [History] Past Medical History HEENT History: Reports: Hard of Hearing, Sinusitis, Other (See Below) Cardiovascular History: Reports: Afib, Arrhythmia, Bypass, Heart Valve Replacement, High Cholesterol, Hypertension, PTCA, Other (See Below) Other Cardiovascular History: aortic stenosis, aortic regurbitation, ischemic heart disease Respiratory History: Reports: None Gastrointestinal History: Reports: Chronic Diarrhea, Hemorrhoids, Other (See Below) Genitourinary History: Reports: None Musculoskeletal History: Reports: Back Pain, Chronic, Osteoarthritis, Other ( See Below) Other Musculoskeletal History: LKR Neurological History: Reports: Migraines Other Neuro History: Pt had a fall last April that lead to Brain Surgery Psychiatric History: Reports: Anxiety, Panic Attack Endocrine/Metabolic History: Reports: None Hematologic History: Reports: None, Bleeding Disorder, Other (See Below) Other Hematologic History: Factor 7 bleeding disorder. Immunologic History: Reports: None Oncologic (Cancer) History: Reports: None, Other (See Below) Other Oncologic History: skin Dermatologic History: Reports: None, Other (See Below) Other Dermatologic History: skin cancer right side of nose - Infectious Disease History Infectious Disease History: Reports: Chicken Pox, Measles, Mumps - Past Surgical History Head Surgeries/Procedures: Reports: None Cardiovascular Surgical History: Reports: Coronary Artery Bypass, Other (See Below) Male Surgical History: Reports: Other (See Below) Musculoskeletal Surgical History: Reports: Other (See Below) Social & Family History - Family History Family Medical History: Noncontributory - Caffeine Use Caffeine Use: Reports: Soda - Living Situation & Occupation Occupation: Retired ED ROS GENERAL - Review of Systems Review Of Systems: Comprehensive ROS is negative, except as noted in HPI. ED EXAM, GENERAL - Physical Exam Exam: See Below Exam Limited By: No Limitations General Appearance: Alert, WD/WN, Anxious, Moderate Distress, Thin Eye Exam: Bilateral Eye: EOMI, Normal Inspection, PERRL Ears: Normal External Exam, Normal Canal, Hearing Grossly Normal, Normal TMs Nose: Normal Inspection, Normal Mucosa, No Blood Throat/Mouth: Normal Inspection, Normal Lips, Normal Teeth, Normal Gums, Normal Oropharynx, Normal Voice, No Airway Compromise Head: Atraumatic, Normocephalic Neck: Normal Inspection, Supple, Non-Tender, Full Range of Motion Respiratory/Chest: No Respiratory Distress, Lungs Clear, Normal Breath Sounds, No Accessory Muscle Use, Chest Non-Tender Cardiovascular: Normal Peripheral Pulses, Regular Rate, Rhythm, No Edema, No Gallop, No JVD, No Murmur, No Rub GI/Abdominal: Normal Bowel Sounds, Soft, Non-Tender, No Organomegaly, No Distention, No Abnormal Bruit, No Mass (Male) Exam: Deferred Rectal (Males) Exam: Deferred Back Exam: Paraspinal Tenderness Extremities: Normal Inspection, Normal Range of Motion, Non-Tender, Normal Capillary Refill, No Pedal Edema Neurological: Alert, Oriented, CN II-XII Intact, Normal Cognition, Normal Gait, Normal Reflexes, No Motor/Sensory Deficits Psychiatric: Anxious, Other Skin Exam: Warm, Dry, Intact, Normal Color, No Rash Lymphatic: No Adenopathy Course - Vital Signs Last Recorded V/S: Last Vital Signs Temp 36.9 C 04/19/19 15:21 Pulse 78 04/19/19 15:21 Resp 17 04/19/19 15:21 BP 168/83 H 04/19/19 15:21 Pulse Ox 100 04/19/19 15:21 - Orders/Labs/Meds Orders: Active Orders 24 hr Category Date Time Status EKG Documentation Completion [RC] URGENT Care 04/19/19 14:54 Active Labs: Laboratory Tests 04/19/19 04/19/19 Range/Units 15:04 15:04 WBC 8.3 (5.0-10.0) 10^3/uL RBC 4.54 L (4.6-6.2) 10^6/uL Hgb 14.9 (14.0-18.0) g/dL Hct 42.7 (40.0-54.0) % MCV 94.1 (80-100) fL MCH 32.8 (27.0-34.0) pg MCHC 34.9 (33.0-35.0) g/dL Plt Count 200 (150-450) 10^3/uL Neut % (Auto) 65.6 (42.2-75.2) % Lymph % (Auto) 23.3 (20.5-50.1) % [place] % (Auto) 8.8 H (2-8) % Eos % (Auto) 1.7 (1.0-3.0) % Baso % (Auto) 0.6 (0.0-1.0) % Sodium 137 (135-145) mmol/L Potassium 3.4 L (3.6-5.0) mmol/L Chloride 104 (101-111) mmol/L Carbon Dioxide 23.0 (21.0-31.0) mmol/L Anion Gap 13.4 BUN 18 (7-18) mg/dL Creatinine 0.9 (0.6-1.3) mg/dL Est Cr Clr Drug Dosing TNP Estimated GFR (MDRD) > 60 BUN/Creatinine Ratio 20.00 Glucose 109 H (74-105) mg/dL Calcium 9.1 (8.4-10.2) mg/dl Total Bilirubin 0.8 (0.2-1.0) mg/dL AST 23 (10-42) IU/L ALT 17 (10-60) IU/L Alkaline Phosphatase 51 (42-121) IU/L Troponin I 0.03 H* (0.00-0.02) ng/ml Total Protein 7.3 (6.7-8.2) g/dl Albumin 4.2 (3.2-5.5) g/dl Globulin 3.1 Albumin/Globulin Ratio 1.35 Meds: Medications Discontinued Medications Generic Name Dose Route Start Last Admin Trade Name Jessica PRN Reason Stop Dose Admin Lorazepam 0.5 mg 04/19/19 15:26 04/19/19 15:38 Ativan PO 04/19/19 15:27 0.5 mg ONETIME ONE Administration Departure - Departure Time of Disposition: 16:12 Disposition: Home, Self-Care 01 Condition: Fair Clinical Impression: Muscle strain of upper back, Anxiety about health Forms: ED Department Discharge Care Plan Goals: The patient was advised of the examination, lab, EKG and x-ray results during the visit. The patient was encouraged to visit the [facility] [place] for counseling. The patient should continue to take his medications as prescribed. If the patient has any additional symptoms or concerns, the patient should visit his primary care facility or return to the emergency department. Sepsis Event Note - Focused Exam Vital Signs: Vital Signs Temp Pulse Resp BP Pulse Ox 04/19/19 15:21 36.9 C 78 17 168/83 H 100 Date Exam was Performed: 04/19/19 Time Exam was Performed: 16:12 - My Orders Last 24 Hours: My Active Orders 04/19/19 14:54 EKG Documentation Completion [RC] URGENT - Assessment/Plan Last 24 Hours: My Active Orders 04/19/19 14:54 EKG Documentation Completion [RC] URGENT
[2019-04-19 15:38] VITALS: BP 168/83; PULSE 78
--- NOTE | 2019-04-19 15:38 | CR ---
EXAMINATION: Chest 1V Frontal SEX: Male AGE: 73 years CLINICAL HISTORY: 73-year-old male complaining of chest pain. INTERPRETATION: No acute new cardiopulmonary abnormality i.e. chest radiograph unchanged except for technique since 11 April 2019 exam. 1. Sternotomy wires and external monitor tech leads. Prominent brachiocephalic artery right apex. 2. Normal cardiac size and configuration. No new pulmonary vascular congestion, cephalization of flow, alveolar edema or dependent pleural effusion. 3. No new lung mass, hilar lymphadenopathy or focal lobar pneumonia. 4. No atelectasis/collapse. 5. No pneumothorax or pneumomediastinum. No free subdiaphragmatic air.
== END 2019-04-19 16:30 | disposition home or self-care (01) ==
LOC: DL.ED 14:48
DX: S29.012A Strain of muscle and tendon of back wall of thorax, initial encounter (principal); F41.9 Anxiety disorder, unspecified; I48.91 Unspecified atrial fibrillation; I10 Essential (primary) hypertension; E78.00 Pure hypercholesterolemia, unspecified; Z88.8 Allergy status to other drugs, medicaments and biological substances; Z79.899 Other long term (current) drug therapy; X58.XXXA Exposure to other specified factors, initial encounter
CPT/HCPCS: 36415; 71045; 80053; 84484; 85025; 93005; 99284; A9270

== ENCOUNTER 2020-12-27 11:27 | Emergency (ER) | payer MEDICARE, OTHER ==
[2020-12-27 11:49] VITALS: BP 108/74; PULSE 92
--- NOTE | 2020-12-27 12:03 | EDM.PDOC ---
ED HPI GENERAL MEDICAL PROBLEM - General Chief Complaint: Genitourinary Problem Stated Complaint: POSSIBLE KIDNEY STONE Time Seen by Provider: 12/27/20 11:59 Source of Information: Reports: Patient History Limitations: Reports: No Limitations - History of Present Illness INITIAL COMMENTS - FREE TEXT/NARRATIVE: 75 y/o M c/o burning with urination for several days. Pt went to his pcp Raeann Machado who ran a ua and found no uti. Pt states it feels like he has a weak stream and the burning occurs at the tip of the penis. Has had kidney stones before as well as utis. No hx of prostate problems, cancers, trauma, fever, cough, chills, cp, back pn, abd n. Pt reports his symptoms began suddenly Groin Pain Score (Numeric/FACES): 4 - Related Data Allergies Allergy/AdvReac Type Severity Reaction Status Date / Time sertraline [From Zoloft] Allergy Depression Verified 12/27/20 11:43 Home Meds: Home Meds Lisinopril 10 mg PO BEDTIME 09/13/18 [History] atorvaSTATin [Lipitor] 40 mg PO BEDTIME 09/13/18 [History] hydrOXYzine pamoate [Hydroxyzine Pamoate] 25 mg PO Q4HR PRN 04/19/19 [History] lisinopriL [Zestril] 20 mg PO ACBREAKFAST 04/19/19 [History] DULoxetine [Cymbalta] 60 mg PO DAILY 12/27/20 [History] buPROPion HCL [Bupropion Xl] 150 mg PO DAILY 12/27/20 [History] Past Medical History HEENT History: Reports: Hard of Hearing, Sinusitis, Other (See Below) Cardiovascular History: Reports: Afib, Arrhythmia, Bypass, Heart Valve Replacement, High Cholesterol, Hypertension, PTCA, Other (See Below) Other Cardiovascular History: aortic stenosis, aortic regurbitation, ischemic heart disease Respiratory History: Reports: None Gastrointestinal History: Reports: Chronic Diarrhea, Hemorrhoids, Other (See Below) Genitourinary History: Reports: Renal Calculus Musculoskeletal History: Reports: Back Pain, Chronic, Osteoarthritis, Other (See Below) Other Musculoskeletal History: LKR Neurological History: Reports: Migraines Other Neuro History: Pt had a fall last April that lead to Brain Surgery Psychiatric History: Reports: Anxiety, Panic Attack Endocrine/Metabolic History: Reports: None Hematologic History: Reports: Bleeding Disorder, Other (See Below) Other Hematologic History: Factor 7 bleeding disorder. Immunologic History: Reports: None Oncologic (Cancer) History: Reports: Other (See Below) Other Oncologic History: skin Dermatologic History: Reports: Other (See Below) Other Dermatologic History: skin cancer right side of nose - Infectious Disease History Infectious Disease History: Reports: Chicken Pox, Measles, Mumps - Past Surgical History Head Surgeries/Procedures: Reports: None HEENT Surgical History: Reports: None Cardiovascular Surgical History: Reports: Coronary Artery Bypass, Other (See Below) Other Cardiovascular Surgeries/Procedures: angioplasty, aortic valve replacement GI Surgical History: Reports: Appendectomy Other GI Surgeries/Procedures: hemorrhoids Male Surgical History: Reports: Other (See Below) Musculoskeletal Surgical History: Reports: Other (See Below) Other Musculoskeletal Surgeries/Procedures:: spinal fusion Social & Family History - Family History Family Medical History: No Pertinent Family History - Tobacco Use Tobacco Use Status *Q: Never Tobacco User - Caffeine Use Caffeine Use: Reports: None - Alcohol Use Days Per Week of Alcohol Use: 7 Number of Drinks Per Day: 1 Total Drinks Per Week: 7 - Recreational Drug Use Recreational Drug Use: No - Living Situation & Occupation Occupation: Retired ED ROS GENERAL - Review of Systems Review Of Systems: Comprehensive ROS is negative, except as noted in HPI. ED EXAM, RENAL/ - Physical Exam Exam: See Below Exam Limited By: No Limitations General Appearance: Alert Eye Exam: Bilateral Eye: PERRL Respiratory/Chest: No Respiratory Distress, Lungs Clear, Normal Breath Sounds, No Accessory Muscle Use, Chest Non-Tender Cardiovascular: Normal Peripheral Pulses, Regular Rate, Rhythm, No Edema, No Gallop, No JVD, No Murmur, No Rub GI/Abdominal: Soft, Non-Tender (Male) Exam: No Hernia, Normal Inspection, Circumcised, Other (No scrotal swelling, trauma to the meatus, no rash. Prostate enlarged and firm to palpation non tender) Course - Vital Signs Last Recorded V/S: Last Vital Signs Temp 97.2 F 12/27/20 11:45 Pulse 92 12/27/20 11:45 Resp 18 12/27/20 11:45 BP 108/74 12/27/20 11:45 Pulse Ox 94 L 12/27/20 11:45 - Orders/Labs/Meds Labs: Laboratory Tests 12/27/20 Range/Units 13:30 Urine Color Yellow (YELLOW) Urine Appearance Slightly cloudy (CLEAR) Urine pH 5.5 (5.0-9.0) Ur Specific [place] >= 1.030 (1.005-1.030) Urine Protein 100 H (NEGATIVE) Urine Glucose (UA) Negative (NEGATIVE) Urine Ketones Negative (NEGATIVE) Urine Occult Blood Negative (NEGATIVE) Urine Nitrite Negative (NEGATIVE) Urine Bilirubin Small H (NEGATIVE) Urine Urobilinogen 0.2 (0.2-1.0) mg/dL Ur Leukocyte Esterase Negative (NEGATIVE) Urine RBC 0-5 (0-5) /HPF Urine WBC 0-5 (0-5/HPF) /HPF Ur Epithelial Cells Rare (NOT SEEN) /HPF Urine Bacteria Rare (0-FEW/HPF) /HPF Granular Casts (Auto) Rare Urine Mucus Few H (NOT SEEN) /LPF Urine Other - Re-Assessments/Exams Free Text/Narrative Re-Assessment/Exam: 12/27/20 14:13 The u/a is negative. Given the pts symptoms and enlarged prostate on exam I will treat with Flomax and and have him follow up with his PCP next week for further workup on his prostate enlargement. Departure - Departure Time of Disposition: 14:15 Disposition: Home, Self-Care 01 Condition: Good Clinical Impression: Enlarged prostate on rectal examination - Discharge Information *PRESCRIPTION DRUG MONITORING PROGRAM REVIEWED*: Not Applicable *COPY OF PRESCRIPTION DRUG MONITORING REPORT IN PATIENT CUAUHTEMOC: Not Applicable Forms: ED Department Discharge Additional Instructions: RX: Flomax If follow up with your primary care provider next week to have further workup on your enlarged prostate. If any new symptoms or concerns develop contact your primary care facility or return to the ER. Sepsis Event Note (ED) - Evaluation Sepsis Screening Result: No Definite Risk - Focused Exam Vital Signs: Vital Signs Temp Pulse Resp BP Pulse Ox 12/27/20 11:45 97.2 F 92 18 108/74 94 L
== END 2020-12-27 14:36 | disposition home or self-care (01) ==
LOC: DL.ED 11:27
DX: N40.0 Benign prostatic hyperplasia without lower urinary tract symptoms (principal); E78.00 Pure hypercholesterolemia, unspecified; I10 Essential (primary) hypertension; Z88.8 Allergy status to other drugs, medicaments and biological substances; Z79.899 Other long term (current) drug therapy
CPT/HCPCS: 81001; 99283

== ENCOUNTER 2021-08-31 15:14 | Emergency (ER) | payer MEDICARE, OTHER | END 2021-08-31 15:21 | disposition left against medical advice (07) | LOC: DL.ED 15:14 | DX: Z53.21 Procedure and treatment not carried out due to patient leaving prior to being seen by health care provider (principal) ==

== ENCOUNTER 2023-03-01 22:45 | Emergency (ER) | payer MEDICARE, BC ==
[2023-03-01] MEDS ORDERED: Sodium Chloride 0.9% 500 ML IV ONE (23:09)
[2023-03-01] MEDS ORDERED: Sodium Chloride 0.9% 10 ML Syringe FLUSH PRN (23:09)
[2023-03-01] MEDS ORDERED: ClonazePAM 0.5 MG Tab PO ONE (23:11)
[2023-03-01 23:22] LABS: BASOPHILS PERCENT AUTO 0.7 % (0.0-1.0); EOSINOPHILS PERCENT AUTO 2.7 % (1.0-3.0); HEMATOCRIT 41.9 % (40.0-54.0); HEMOGLOBIN 14.5 g/dL (14.0-18.0); LYMPHOCYTES PERCENT AUTO 16.3 % (20.5-50.1); MEAN CORPUSCULAR HEMOGLOBIN 32.8 pg (27.0-34.0); MEAN CORPUSCULAR HGB CONC 34.6 g/dL (33.0-35.0); MEAN CORPUSCULAR VOLUME 94.8 fL (80-100); MONOCYTES PERCENT AUTO 8.8 % (2-8); NEUTROPHILS PERCENT AUTO 71.5 % (42.2-75.2); PLATELET COUNT,PLT 213 10^3/uL (150-450); RED BLOOD CELL COUNT 4.42 10^6/uL (4.6-6.2)
[2023-03-01 23:27] VITALS: BP 167/103; PULSE 86
[2023-03-01 23:46] LABS: ALBUMIN 3.3 g/dL (3.4-5.0); BILIRUBIN TOTAL 0.6 mg/dL (0.2-1.0); CALCIUM 8.7 mg/dL (8.5-10.1); EST CRCL DRUG DOSING (CG) 56.92 mL/min; PROTEIN TOTAL,TP 6.6 g/dL (6.4-8.2)
== END 2023-03-02 00:44 | disposition home or self-care (01) ==
LOC: DL.ED 22:45
DX: F41.9 Anxiety disorder, unspecified (principal); I10 Essential (primary) hypertension; E78.00 Pure hypercholesterolemia, unspecified; Z88.8 Allergy status to other drugs, medicaments and biological substances; Z79.899 Other long term (current) drug therapy
CPT/HCPCS: 36415; 80053; 84484; 85025; 93005; 93010; 96360; 99284; 99285-25; A9270-GY; J3490; J7030

== ENCOUNTER 2023-03-25 21:45 | Emergency (ER) | payer MEDICARE, BC ==
[2023-03-25 22:55] VITALS: BP 171/106; PULSE 78
== END 2023-03-25 23:33 | disposition home or self-care (01) ==
LOC: DL.ED 21:45
DX: Z13.9 Encounter for screening, unspecified (principal); I10 Essential (primary) hypertension; E78.00 Pure hypercholesterolemia, unspecified; I48.91 Unspecified atrial fibrillation; Z95.1 Presence of aortocoronary bypass graft; Z79.899 Other long term (current) drug therapy; Z88.8 Allergy status to other drugs, medicaments and biological substances
CPT/HCPCS: 74018; 99282; 99284

== ENCOUNTER 2023-07-21 13:01 | Emergency (ER) | payer MEDICARE, BC ==
[2023-07-21 14:17] VITALS: BP 156/91; PULSE 73
== END 2023-07-21 15:35 | disposition home or self-care (01) ==
LOC: DL.ED 13:01
DX: F41.9 Anxiety disorder, unspecified (principal); F32.A Depression, unspecified; Z79.899 Other long term (current) drug therapy; Z88.8 Allergy status to other drugs, medicaments and biological substances; Z95.1 Presence of aortocoronary bypass graft
CPT/HCPCS: 99283; 99284

== ENCOUNTER 2024-07-12 05:41 | Emergency (ER) | payer MEDICARE, BC ==
[2024-07-12 06:20] LABS: BASOPHILS PERCENT AUTO 0.5 % (0.0-1.0); EOSINOPHILS PERCENT AUTO 1.9 % (1.0-3.0); HEMATOCRIT 44.1 % (40.0-54.0); HEMOGLOBIN 15.2 g/dL (14.0-18.0); LYMPHOCYTES PERCENT AUTO 20.2 % (20.5-50.1); MEAN CORPUSCULAR HEMOGLOBIN 34.5 pg (27.0-34.0); MEAN CORPUSCULAR HGB CONC 34.5 g/dL (33.0-35.0); MEAN CORPUSCULAR VOLUME 100.2 fL (80-100); MONOCYTES PERCENT AUTO 7.7 % (2-8); NEUTROPHILS PERCENT AUTO 69.7 % (42.2-75.2); PLATELET COUNT,PLT 172 10^3/uL (150-450); WHITE BLOOD CELL COUNT,WBC 8.6 10^3/uL (5.0-10.0)
[2024-07-12] MEDS: Sodium Chloride 0.9% 1,000 ML IV SCH (06:23)
[2024-07-12 06:39] LABS: A/G RATIO 1.1; ALANINE AMINOTRANSFERASE,ALT 33 U/L (16-63); ALBUMIN 3.6 g/dL (3.4-5.0); ALKALINE PHOSPHATASE 59 U/L (46-116); ANION GAP 8.3 mEq/L (7-13); ASPARTATE AMNIOTRANSFERASE,AST 28 U/L (15-37); BILIRUBIN TOTAL 0.9 mg/dL (0.2-1.0); BLOOD UREA NITROGEN,BUN 22 mg/dL (7-18); BUN/CREATININE RATIO 22.9 (No establ ref range); CALCIUM 9.6 mg/dL (8.5-10.1); CARBON DIOXIDE,CO2 29 mmol/L (21-32); CHLORIDE,CL 106 mmol/L (98-107); CREATININE 0.96 mg/dL (0.70-1.30); EST CRCL DRUG DOSING (CG) 57.38 mL/min; GLUCOSE RANDOM 104 mg/dL (70-99); POTASSIUM,K 4.3 mmol/L (3.5-5.1); PROTEIN TOTAL,TP 6.9 g/dL (6.4-8.2); SODIUM,NA 139 mmol/L (136-145)
[2024-07-12 06:43] LABS: LACTIC ACID 1.3 mmol/L (0.4-2.0)
[2024-07-12 06:44] LABS: C-REACTIVE PROTEIN < 0.50 ng/dL (<=0.50); ESTIMATED GFR 80 mL/min (>=60)
[2024-07-12 07:59] VITALS: BP 175/83; PULSE 57
== END 2024-07-12 08:12 | disposition home or self-care (01) ==
LOC: DL.ED 05:41
DX: K52.1 Toxic gastroenteritis and colitis (principal); T36.1X5A Adverse effect of cephalosporins and other beta-lactam antibiotics, initial encounter; I48.91 Unspecified atrial fibrillation; M19.90 Unspecified osteoarthritis, unspecified site; Z88.8 Allergy status to other drugs, medicaments and biological substances; Z79.899 Other long term (current) drug therapy; Z90.49 Acquired absence of other specified parts of digestive tract
CPT/HCPCS: 36415; 80053; 83605; 85025; 86140; 87493; 96360; 99283; 99284; J7030

== ENCOUNTER 2024-08-13 05:19 | Emergency (ER) | payer MEDICARE, BC ==
[2024-08-13 05:34] VITALS: BP 131/81; PULSE 79
[2024-08-13] MEDS ORDERED: Sodium Chloride 0.9% 10 ML Syringe FLUSH PRN (05:58)
[2024-08-13 06:17] LABS: BASOPHILS PERCENT AUTO 0.2 % (0.0-1.0); HEMATOCRIT 42.6 % (40.0-54.0); LYMPHOCYTES PERCENT AUTO 5.1 % (20.5-50.1); MEAN CORPUSCULAR HEMOGLOBIN 34.5 pg (27.0-34.0); MEAN CORPUSCULAR HGB CONC 35.2 g/dL (33.0-35.0); MEAN CORPUSCULAR VOLUME 97.9 fL (80-100); MONOCYTES PERCENT AUTO 6.4 % (2-8); NEUTROPHILS PERCENT AUTO 88.3 % (42.2-75.2); PLATELET COUNT,PLT 171 10^3/uL (150-450); RED BLOOD CELL COUNT 4.35 10^6/uL (4.6-6.2); WHITE BLOOD CELL COUNT,WBC 14.8 10^3/uL (5.0-10.0)
[2024-08-13 06:38] LABS: A/G RATIO 1.2; ALBUMIN 3.8 g/dL (3.4-5.0); ANION GAP 12.6 mEq/L (7-13); BILIRUBIN TOTAL 1.3 mg/dL (0.2-1.0); BUN/CREATININE RATIO 18.3 (No establ ref range); CALCIUM 9.5 mg/dL (8.5-10.1); CREATININE 1.15 mg/dL (0.70-1.30); EST CRCL DRUG DOSING (CG) 47.9 mL/min; POTASSIUM,K 4.6 mmol/L (3.5-5.1)
[2024-08-13 06:41] LABS: LACTIC ACID 1.8 mmol/L (0.4-2.0)
== END 2024-08-13 07:06 | disposition home or self-care (01) ==
LOC: DL.ED 05:19
DX: K59.00 Constipation, unspecified (principal); I10 Essential (primary) hypertension; Z90.49 Acquired absence of other specified parts of digestive tract; Z95.2 Presence of prosthetic heart valve; Z88.8 Allergy status to other drugs, medicaments and biological substances; Z79.899 Other long term (current) drug therapy
CPT/HCPCS: 36415; 74022; 80053; 83605; 83690; 85025; 99284

== ENCOUNTER 2024-09-30 12:49 | Emergency (ER) | payer MEDICARE, BC ==
[2024-09-30 13:10] VITALS: BP 137/89; PULSE 88
== END 2024-09-30 13:50 | disposition home or self-care (01) ==
LOC: DL.ED 12:49
DX: S20.211A Contusion of right front wall of thorax, initial encounter (principal); I48.91 Unspecified atrial fibrillation; E78.00 Pure hypercholesterolemia, unspecified; Z88.8 Allergy status to other drugs, medicaments and biological substances; Z79.899 Other long term (current) drug therapy; Z95.5 Presence of coronary angioplasty implant and graft; W06.XXXA Fall from bed, initial encounter; Y93.89 Activity, other specified
CPT/HCPCS: 71101-RT; 99282; 99283